=== PATIENT | female | born 2000 | race Hispanic/Latino ===

== ENCOUNTER 2023-05-14 23:54 | Emergency (ER) | payer BC, MEDICAID ==
[~2023-05-14] VITALS: Ht 152.4 cm; Wt 73.0 kg
[~2023-05-14 23:54] MED LIST: MACR100 PO; PHEN-847 PO
[2023-05-15 03:20] VITALS: BP 105/62
== END 2023-05-15 03:36 | disposition home or self-care (01) ==
LOC: EDH 23:54
DX: O26.892 Other specified pregnancy related conditions, second trimester (principal); S30.1XXA Contusion of abdominal wall, initial encounter; Z3A.16 16 weeks gestation of pregnancy; X58.XXXA Exposure to other specified factors, initial encounter; Y93.89 Activity, other specified; Y92.89 Other specified places as the place of occurrence of the external cause; Y99.8 Other external cause status
CPT/HCPCS: 76805

== ENCOUNTER 2024-02-19 15:11 | Emergency (ER) | payer BC, MEDICAID ==
[~2024-02-19] VITALS: Ht 152.4 cm; Wt 72.6 kg
[2024-02-19 15:56] LABS: BASOPHILS # (AUTO) 0.05 K/uL (0.00-0.20); BASOPHILS % (AUTO) 0.5 % (0.0-5.0); EOSINOPHILS # (AUTO) 0.32 K/uL (0.00-0.70); EOSINOPHILS % (AUTO) 3.3 % (0.0-8.0); HEMATOCRIT 35.3 % (36-48); IMMATURE GRANULOCYTE ABSOLUTE 0.03 K/uL (0-1); LYMPHOCYTES # (AUTO) 2.4 K/uL (1.0-4.8); LYMPHOCYTES % (AUTO) 24.2 % (21.0-51.0); MEAN CORPUSCULAR HEMOGLOBIN 28.8 pg (27.0-33.0); MEAN CORPUSCULAR HGB CONC 34.8 g/dL (32.0-36.0); MEAN CORPUSCULAR VOLUME 82.7 fL (79-99); MONOCYTES # (AUTO) 0.5 K/uL (0.1-1.0); NEUTROPHILS # (AUTO) 6.5 K/uL (1.8-7.7); NEUTROPHILS % (AUTO) 66.7 % (40.0-77.0); PLATELET COUNT (AUTO) 337 K/uL (130-400); RED BLOOD CELL COUNT(AUTO) 4.27 MIL/uL (4.00-5.50); RED CELL DISTRIBUTION WIDTH 13.4 % (11.0-15.5); WHITE BLOOD COUNT (AUTO) 9.8 K/uL (4.8-10.8)
[2024-02-19 16:02] LABS: CREATININE 0.6 mg/dL (0.5-1.0); POTASSIUM 3.9 mmol/L (3.5-5.1)
[2024-02-19 16:25] LABS: INR <= 0.93 (0.85-1.15); PROTHROMBIN TIME 10.6 SEC (9.6-11.6)
[2024-02-19 16:26] LABS: PARTIAL THROMBOPLASTIN TIME 31.1 SEC (26.3-35.5)
[2024-02-19 17:18] VITALS: BP 106/72; PULSE 73; RESP 18; O2SAT 96
== END 2024-02-19 17:19 | disposition home or self-care (01) ==
LOC: EDH 15:11
DX: O36.4XX0 Maternal care for intrauterine death, not applicable or unspecified (principal); O26.891 Other specified pregnancy related conditions, first trimester; R10.2 Pelvic and perineal pain; Z3A.01 Less than 8 weeks gestation of pregnancy
CPT/HCPCS: 36415; 76801; 80048; 84702; 85025; 85610; 85730; 86850; 86900; 86901

== ENCOUNTER 2024-02-20 21:02 | Inpatient (IN) | payer BC, MEDICAID ==
[~2024-02-20] VITALS: Ht 152.4 cm; Wt 72.6 kg
[2024-02-20 22:02] LABS: BASOPHILS # (AUTO) 0.06 K/uL (0.00-0.20); BASOPHILS % (AUTO) 0.4 % (0.0-5.0); EOSINOPHILS # (AUTO) 0.15 K/uL (0.00-0.70); EOSINOPHILS % (AUTO) 0.9 % (0.0-8.0); HEMATOCRIT 29.9 % (36-48); IMMATURE GRANULOCYTE ABSOLUTE 0.07 K/uL (0-1); LYMPHOCYTES # (AUTO) 1.9 K/uL (1.0-4.8); MEAN CORPUSCULAR HEMOGLOBIN 28.7 pg (27.0-33.0); MEAN CORPUSCULAR HGB CONC 33.4 g/dL (32.0-36.0); MEAN CORPUSCULAR VOLUME 85.7 fL (79-99); MONOCYTES # (AUTO) 0.7 K/uL (0.1-1.0); MONOCYTES % (AUTO) 4.1 % (3.0-13.0); NEUTROPHILS # (AUTO) 13.1 K/uL (1.8-7.7); NEUTROPHILS % (AUTO) 82.2 % (40.0-77.0); PLATELET COUNT (AUTO) 308 K/uL (130-400); RED BLOOD CELL COUNT(AUTO) 3.49 MIL/uL (4.00-5.50); RED CELL DISTRIBUTION WIDTH 13.2 % (11.0-15.5)
[2024-02-20 22:13] LABS: CREATININE 0.7 mg/dL (0.5-1.0); POTASSIUM 3.3 mmol/L (3.5-5.1)
[2024-02-20] MEDS: 0.9%NACL 1000ML 2,000 ML IV ONE (22:31)
[2024-02-20 22:39] LABS: ALBUMIN 3.3 g/dL (3.5-5.0); BILIRUBIN,TOTAL 0.1 mg/dL (0.2-1.0); TOTAL PROTEIN, SERUM 7.1 g/dL (6.0-8.3)
[2024-02-20] MEDS: MORPHINE 2 MG SYG IVP ONE (23:38)
[2024-02-21] MEDS: DEXTROSE 5%-LACTATED RINGERS 1,000 ML IV SCH (00:30)
[2024-02-21 01:02] VITALS: O2SAT 98
[2024-02-21] MEDS: MEPERIDINE-PF 50 MG/ML SYG IVP PRN (01:16)
[2024-02-21] MEDS: PROMETHAZINE HCL 25 MG/ML 1ML AMPULE IM PRN (01:17)
[2024-02-21 02:00] VITALS: BP 109/68; PULSE 83; RESP 20
[2024-02-21 03:30] VITALS: BP 109/57; PULSE 90; RESP 20
[2024-02-21 07:15] VITALS: BP 115/58; PULSE 88; RESP 18
[2024-02-21] MEDS ORDERED: MISOPROSTOL 200 MCG TABLET ONE (07:29)
[2024-02-21] MEDS ORDERED: METHYLERGONOVINE MALEATE 0.2 MG/1 ML ML ONE (07:29)
[2024-02-21] MEDS ORDERED: CEFAZOLIN SODIUM 2 GM VIAL IVPB PRN (08:00)
[2024-02-21] MEDS ORDERED: LIDOCAINE PF 100MG/5ML (2%) SYRINGE 5ML ONE (08:09)
[2024-02-21] MEDS ORDERED: MIDAZOLAM HCL 1 MG/ML 2ML VIAL ONE (08:09)
[2024-02-21] MEDS ORDERED: PROPOFOL 10 MG/ML 20ML VIAL IV ONE (08:09)
[2024-02-21] MEDS ORDERED: DEXAMETHASONE SOD PHOSPHATE 10MG/ML 1ML VIAL ONE (08:10)
[2024-02-21] MEDS ORDERED: FENTANYL CITRATE PF 50 MCG/1 ML 2ML VIAL ONE (08:10)
[2024-02-21] MEDS ORDERED: ONDANSETRON 4MG INJ ONE (08:10)
[2024-02-21] MEDS ORDERED: PHENYLEPHRINE HCL 10 MG/ML 1ML VIAL IV ONE (08:19)
[2024-02-21] MEDS ORDERED: OXYTOCIN 10 USP UNITS/ML ONE ×2 (08:28→08:32)
[2024-02-21] MEDS: METHYLERGONOVINE MALEATE 0.2 MG/1 ML ML IM ONE (08:30)
[2024-02-21] MEDS ORDERED: TRANEXAMIC ACID 1000MG/10ML ONE (08:32)
[2024-02-21 09:55] VITALS: BP 114/61; PULSE 83; RESP 18
[2024-02-21] MEDS ORDERED: IBUP-2077 PO ×2 (10:48)
== END 2024-02-21 11:35 | disposition home or self-care (01) | DRG 770 ==
LOC: EDH 21:02 → EDHIP 02-21 00:19 → WSH 02-21 00:38
PROVIDERS: ADMIT Obstetrics & Gynecology; ATTEND Obstetrics & Gynecology
PROC: 10D17ZZ Extraction of Products of Conception, Retained, Via Natural or Artificial Opening (ICD-10-PCS; principal; 2024-02-21 07:30)
DX: O03.4 Incomplete spontaneous abortion without complication (principal); Z3A.14 14 weeks gestation of pregnancy
CPT/HCPCS: 36415; 76801; 80053; 84702; 84703; 85025; 86850; 86900; 86901; 88305; 96361; 96374; A4351; G0378; J1100; J2001; J2175; J2210; J2250; J2270; J2371; J2405; J2550; J2590; J2704; J3010; J3490; J7030; A4649; A4930; J0690